=== PATIENT | male | born 1940 | race Caucasian/White ===

== ENCOUNTER 2023-02-20 08:01 | Day surgery (SDC) | payer OTHER ==
[2023-02-16 15:39] VITALS: BMI 25.8
[2023-02-20 08:34] VITALS: RESP 18
[2023-02-20 09:35] VITALS: TEMP 97
[2023-02-20 09:46] VITALS: BP 110/59; PULSE 63
== END 2023-02-20 09:50 | disposition home or self-care (01) ==
LOC: FASU-ENDO 08:01
PROVIDERS: ATTEND Internal Medicine Gastroenterology
PROC: 0DBK8ZX Excision of Ascending Colon, Via Natural or Artificial Opening Endoscopic, Diagnostic (ICD-10-PCS; principal; 2023-02-20 08:51)
DX: Z12.11 Encounter for screening for malignant neoplasm of colon (principal); D12.2 Benign neoplasm of ascending colon; Z80.0 Family history of malignant neoplasm of digestive organs; R93.3 Abnormal findings on diagnostic imaging of other parts of digestive tract
CPT/HCPCS: 88305-TC